=== PATIENT | female | born 1955 | race Caucasian/White ===

== ENCOUNTER 2018-10-14 19:53 | Emergency (ER) | payer OTHER ==
[~2018-10-14] VITALS: Ht 152.4 cm; Wt 53.5 kg
[~2018-10-14 19:53] MED LIST: INDERAL LA120 MG PO
[2018-10-17] MEDS ORDERED: TENCON 50-3251 EACH (05:15)
[2018-10-17] MEDS ORDERED: CYCLOBENZAPRINE10 MG PO (11:11)
[2018-10-17] MEDS ORDERED: MEDROLPACK PO (11:11)
[2018-10-17] MEDS ORDERED: DICLOFENAC SODI50 MG PO (11:11)
== END 2018-10-14 22:25 | disposition home or self-care (01) ==
LOC: ER 19:53
DX: R51 Headache (principal); J01.80 Other acute sinusitis

== ENCOUNTER → 2018-10-17 | Emergency (ER) | payer OTHER ==
[~2018-10-17] VITALS: Ht 152.4 cm; Wt 53.5 kg
[~2018-10-17] MED LIST changes: +CYCLOBENZAPRINE10 MG PO; +DICLOFENAC SODI50 MG PO; +MEDROLPACK PO; +TENCON 50-3251 EACH
== END | disposition home or self-care (01) ==
LOC: ER 04:51
DX: R51 Headache (principal)

== ENCOUNTER 2024-07-21 09:03 | Emergency (ER) | payer OTHER ==
[~2024-07-21] VITALS: Ht 152.4 cm; Wt 53.1 kg
[2024-07-21] MEDS ORDERED: LYRICA100 MG (09:51)
[2024-07-21] MEDS ORDERED: AVAPRO75 MG (09:51)
== END 2024-07-21 10:37 | disposition home or self-care (01) ==
LOC: ER 09:05
DX: H66.90 Otitis media, unspecified, unspecified ear (principal)

== ENCOUNTER 2024-07-21 22:00 | Emergency (ER) | payer OTHER ==
[~2024-07-21] VITALS: Ht 152.4 cm; Wt 53.1 kg
[~2024-07-21 22:00] MED LIST changes: +AVAPRO75 MG; +LYRICA100 MG
[2024-07-21] MEDS ORDERED: TRAMADOL HCL 50 MG TABLET PO STA (23:54)
== END 2024-07-22 00:04 | disposition home or self-care (01) ==
LOC: ER 22:01
DX: R51.9 Headache, unspecified (principal); I10 Essential (primary) hypertension